=== PATIENT | male | born 1995 | race Native Hawaiian/Other Pacific Islander ===

== ENCOUNTER 2021-02-20 11:06 | Emergency (ER) | payer OTHER, SELFPAY ==
[2021-02-20] MEDS ORDERED: Ibuprofen 600 MG TAB ONE (11:32)
== END 2021-02-20 12:35 | disposition home or self-care (01) ==
LOC: MADERS 11:06
DX: S16.1XXA Strain of muscle, fascia and tendon at neck level, initial encounter (principal); M54.6 Pain in thoracic spine; M54.50 Low back pain, unspecified; R51.9 Headache, unspecified; F17.220 Nicotine dependence, chewing tobacco, uncomplicated; V59.9XXA Occupant (driver) (passenger) of pick-up truck or van injured in unspecified traffic accident, initial encounter
CPT/HCPCS: 70450; 72125; 72128